=== PATIENT | female | born 1995 | race Two or more races ===

== ENCOUNTER 2019-11-18 19:38 | Emergency (ER) | payer MEDICAID ==
[~2019-11-18] VITALS: Ht 167.6 cm; Wt 98.0 kg
[2019-11-18] MEDS ORDERED: LIDOCAINE HCL/PF 1% 10 MG/ML 5ML VIAL IJ ONE (21:15)
[2019-11-18] MEDS ORDERED: ONDANSETRON 4MG ODT PO ONE (21:15)
[2019-11-18] MEDS ORDERED: HYDROCODONE/ACETAMINOPHEN 5/325MG TABLET PO ONE (21:15)
[2019-11-18] MEDS ORDERED: TETANUS, DIPHTHERIA, PERTUSSIS VAC/PF 0.5ML (>7YR OLD) IM ONE (21:15)
[2019-11-18] MEDS ORDERED: BACITRACIN ZINC OINT UDPKT TOP ONE (21:15)
[2019-11-18] MEDS ORDERED: KETOROLAC 30MG/ML VIAL IV ONE (21:15)
[2019-11-18 22:56] VITALS: BP 128/80
== END 2019-11-18 22:59 | disposition home or self-care (01) ==
LOC: ER 19:38
DX: L02.412 Cutaneous abscess of left axilla (principal)
CPT/HCPCS: 87070; 87077; 87186; 87205; 90471; 90715; 96374; 99284; J1885; J3490; Q0162; Z7610